=== PATIENT | female | born 1950 | race Caucasian/White ===

== ENCOUNTER 2016-06-20 13:16 | Emergency (ER) | payer BC, MEDICARE ==
[2016-06-20 14:49] VITALS: BP 111/69
--- NOTE | 2016-06-20 15:26 | UC ---
Skin Complaint HPI - HPI Summary HPI Summary: tick in back for two days, scraped off a big part of it, but part still remains - History of Current Complaint Chief Complaint: UCGeneralIllness Time Seen by Provider: 06/20/16 15:09 Stated Complaint: TICK BITE Hx Obtained From: Patient ?: No Onset/Duration: Sudden Onset, Lasting Days Skin Exposure Onset/Duration: Days Ago Timing: Constant Onset Severity: Mild Current Severity: None Location: Discrete - upper back Character: Redness Aggravating: Nothing Alleviating: Nothing Associated Signs & Symptoms: Positive: Tenderness - Allergy/Home Medications Allergies/Adverse Reactions: Allergies Allergy/AdvReac Type Severity Reaction Status Date / Time No Known Allergies Allergy Verified 06/20/16 14:36 Home Medications: Home Medications Calcium 600 mg PO 06/20/16 [History] Cholecalciferol [Vitamin D] 1,000 unit PO 06/20/16 [History] [place]-3 Fatty Acids [Fish Oil] 1,000 mg PO 06/20/16 [History] Review of Systems Constitutional: Negative Skin: Other - bite Eyes: Negative ENT: Negative Respiratory: Negative Cardiovascular: Negative Gastrointestinal: Negative Genitourinary: Negative Motor: Negative Neurovascular: Negative Musculoskeletal: Negative Neurological: Negative Psychological: Negative All Other Systems Reviewed And Are Negative: Yes PMH/Surg Hx/FS Hx/Imm Hx Previously Healthy: Yes Cancer History Of: Denies: Breast Cancer - Surgical History Surgical History: Unable to Obtain/Confirm Surgery Procedure, Year, and Place: can't remember - Family History Known Family History: Negative: Cardiac Disease, Hypertension - Social History Alcohol Use: Occasionally Substance Use Type: None Smoking Status (MU): Never Smoked Tobacco - Immunization History Most Recent Influenza Vaccination: 2016 Most Recent Tetanus Shot: Pt states up to date Physical Exam Triage Information Reviewed: Yes Appearance: Well-Appearing, Well-Nourished, Pain Distress Vital Signs: Initial Vital Signs Temp 99.3 F 06/20/16 14:40 Pulse 65 06/20/16 14:40 Resp 18 06/20/16 14:40 BP 111/69 06/20/16 14:40 Pulse Ox 99 06/20/16 14:40 Vital Signs Reviewed: Yes Eye Exam: Normal Eyes: Positive: Conjunctiva Clear ENT Exam: Normal ENT: Positive: Hearing grossly normal, Pharynx normal, TMs normal Dental Exam: Normal Neck exam: Normal Neck: Positive: Supple, Nontender, No Lymphadenopathy Respiratory Exam: Normal Respiratory: Positive: Chest non-tender, Lungs clear, Normal breath sounds, No respiratory distress Cardiovascular Exam: Normal Cardiovascular: Positive: RRR, No Murmur, Pulses Normal Abdominal Exam: Normal Abdomen Description: Positive: Nontender, No Organomegaly, Soft Bowel Sounds: Positive: Present Musculoskeletal Exam: Normal Musculoskeletal: Positive: Strength Intact, ROM Intact, No Edema Neurological Exam: Normal Neurological: Positive: Alert, Muscle Tone Normal Skin: Positive: Other - tick bite Course/Dx - Course Course Of Treatment: hx obtained, exam performed, meds reviewed, tick remains removed. treated with one dose of doxycycline. - Differential Diagnoses - Skin Complaint Differential Diagnoses: Abscess, Anaphylaxis, Cellulitis, Contact Dermatitis, Tick Born Illness, Urticaria - Diagnoses Provider Diagnoses: tick bite Discharge - Discharge Plan Condition: Stable Disposition: HOME Prescriptions: DOXYcycline CAP(*) [DOXYcycline 100MG CAP(*)] 200 mg PO ONCE #2 cap Patient Education Materials: Lyme Disease (ED), Tick Bite (ED) Referrals: Carlyn Grady MD [Primary Care Provider] - Additional Instructions: Take the one time dose of antibiotics as prescribed with your next meal. I have included information on tick bites and lyme disease for your reference.
== END 2016-06-20 16:03 | disposition home or self-care (01) ==
LOC: UCEAST 13:16
DX: S20.469A Insect bite (nonvenomous) of unspecified back wall of thorax, initial encounter (principal); W57.XXXA Bitten or stung by nonvenomous insect and other nonvenomous arthropods, initial encounter; Y93.9 Activity, unspecified; Y92.9 Unspecified place or not applicable
CPT/HCPCS: 99201; G0463